=== PATIENT | female | born 1965 | race Hispanic/Latino ===

== ENCOUNTER 2018-09-29 01:32 | Emergency (ER) | payer SELFPAY ==
[2018-09-29 01:41] VITALS: BP 155/85
== END 2018-09-29 04:45 | disposition left against medical advice (07) ==
LOC: ED 01:32
DX: H92.02 Otalgia, left ear (principal); Z53.21 Procedure and treatment not carried out due to patient leaving prior to being seen by health care provider

== ENCOUNTER 2021-02-07 02:30 | Emergency (ER) | payer SELFPAY ==
[2021-02-07] MEDS ORDERED: ONDANSETRON 4 MG/2 ML INJ IV PRN (03:04)
[2021-02-07] MEDS ORDERED: NALOXONE 0.4 MG/1 ML INJ IV PRN (03:04)
--- NOTE | 2021-02-07 03:06 | Emergency Department Report ---
<KEIRA ROCA - Last Filed: 02/07/21 08:40> ED General Adult HPI - General Chief complaint: Overdose Stated complaint: patient sleeping Time Seen by Provider: 02/07/21 02:52 - Related Data Previous Rx's Medication Instructions Recorded Last Taken Type Naloxone HCl [Narcan Nasal [place]] 4 mg NS PRN PRN #1 spray 02/07/21 Unknown Rx Allergies Allergy/AdvReac Type Severity Reaction Status Date / Time Penicillins Allergy Unknown Verified 09/02/13 09:51 Sulfa (Sulfonamide Allergy Unknown Verified 09/02/13 09:51 Antibiotics) ED Past Medical Hx - Medications Home Medications: Home Medications Medication Instructions Recorded Confirmed Last Taken Type Naloxone HCl [Narcan Nasal [place]] 4 mg NS PRN PRN #1 spray 02/07/21 Unknown Rx ED Course - Reevaluation(s) Reevaluation #3: 02/07/21 08:40 Patient now is alert, oriented x3 in no acute distress. Patient stated that she took the drug last night to get high. He denied any thoughts of suicidal ideation. Patient also denied any homicidal ideation. Patient denied any visual or auditory hallucination. Patient is eating breakfast comfortably. Vital signs stable. Patient is medically and psychiatrically stable for discharge. ED Medical Decision Making - Lab Data Result diagrams: 02/07/21 03:24 02/07/21 03:24 ED Disposition Clinical Impression: Opioid overdose Disposition: 01 HOME / SELF CARE / HOMELESS Condition: Good Instructions: Opioid Overdose Additional Instructions: We recommend that the patient not drive or operate motor vehicles until cleared to do so by a primary care doctor. Recommend that patient avoid consumption of narcotics, opioids, alcohol, tobacco, smoke products, recreational and legal drugs. Consumption of opioids may cause addiction, , paralysis, loss of quality of life, and respiratory depression. Use the Narcan medication as needed for symptoms of opioid overdose. Please follow-up with your primary care doctor within the next 3 to 5 days for repeat checkup and evaluation. Please return to the emergency room right away with new, worsened or different symptoms, recurrent overdose, homicidality, suicidality, or any new, worsened or different symptoms not present on the initial emergency room evaluation. Prescriptions: Naloxone HCl [Narcan Nasal [place]] 4 mg NS PRN PRN #1 spray PRN Reason: Opioid Reversal Referrals: [facility] [Provider Group] - 3-5 Days [facility] [Outside] - 3-5 Days [facility] [Outside] - 3-5 Days <VLADISLAV WEBSTER - Last Filed: 02/09/21 11:43> ED General Adult HPI - General Source: patient, EMS ( EMS documentation not available at time of chart dictation ), RN notes reviewed, old records reviewed Mode of arrival: Stretcher Limitations: Altered Mental Status - History of Present Illness Initial comments: The patient was evaluated in the emergency department for symptoms described in the history of present illness. He/she was evaluated in the context of the [facility] COVID-19 pandemic, which necessitated consideration that the patient might be at risk for infection with the virus that causes COVID-19. Institutional protocols and algorithms that pertain to the evaluation of patients at risk for COVID-19 are in a state of rapid change based on information released by regulatory bodies including the CDC and federal and state organizations. These policies and algorithms were followed during the patient's care in the emergency department. Please note that these policies, procedures and recommendations changed on a rapid basis. The patient is a 55-year-old female. She is not known to myself previously. She is reportedly brought to the hospital by emergency medical services with a complaint of narcotic overdose. Patient is sleepy but somewhat arousable. To me she denies physical pain. She denies homicidality and suicidality. Collateral information obtained from nursing staff includes the following: Patient overdosed on heroin and home, did not fall or hit head, was ambulatory in the field, and stable vital signs in the field, but family contacted 911 because of somnolence. Apparently, the family also performed CPR. At the moment, the patient is not accompanied by friends or family for additional information and/or collateral information. At this point time, patient not able to describe the qualitative nature of her symptoms, exacer bating factors, relieving factors or aggravating factors -: This morning ED Review of Systems ROS: Stated complaint: DRUG OD Other details as noted in HPI Comment: Unobtainable due to pts medical conditions ED Past Medical Hx - Social History Smoking Status: Current Every Day Smoker Substance Use Type: Marijuana, Other ED Physical Exam - General Limitations: Altered Mental Status General appearance: in no apparent distress, lethargic - Head Head exam: Present: atraumatic, normocephalic - Eye Eye exam: Present: normal appearance, EOMI, other (Pinpoint pupils are noted bilaterally) - ENT ENT exam: Present: normal exam, normal orophraynx, mucous membranes moist, normal external ear exam, other (Patient is edentulous) - Neck Neck exam: Present: normal inspection, full ROM. Absent: tenderness, meningismus - Respiratory Respiratory exam: Present: decreased breath sounds. Absent: respiratory distress, wheezes, rales, rhonchi, stridor - Cardiovascular Cardiovascular Exam: Present: normal rhythm, bradycardia, normal heart sounds. Absent: tachycardia, irregular rhythm, systolic murmur, diastolic murmur, rubs, gallop - GI/Abdominal GI/Abdominal exam: Present: soft. Absent: distended, tenderness, guarding, rebound, rigid, pulsatile mass - Extremities Exam Extremities exam: Present: normal inspection, other (2+ pulses noted in the bilateral upper and lower extremities. There is no palpable cord. negative Homans sign. Muscular compartments are soft. The pelvis is stable.). Absent: calf tenderness - Back Exam Back exam: Present: normal inspection. Absent: tenderness, CVA tenderness (R), CVA tenderness (L), paraspinal tenderness, vertebral tenderness - Neurological Exam Neurological exam: Present: altered, other (There is no facial droop. The tongue is midline. Moves 4 extremities spontaneously.) - Psychiatric Psychiatric exam: Present: flat affect - Skin Skin exam: Present: warm, dry, intact, normal color. Absent: rash ED Course Vital Signs 02/07/21 02/07/21 02/07/21 03:09 03:16 03:25 Temperature 98.5 F Pulse Rate 56 L 55 L Respiratory 11 L 10 L 10 L Rate Blood Pressure 120/56 121/56 O2 Sat by Pulse 96 98 97 Oximetry 02/07/21 02/07/21 02/07/21 03:31 04:01 04:31 Temperature Pulse Rate 63 82 72 Respiratory 13 15 12 Rate Blood Pressure 120/56 111/44 120/56 O2 Sat by Pulse 97 98 99 Oximetry 02/07/21 02/07/21 02/07/21 05:01 05:31 06:01 Temperature Pulse Rate 57 L 55 L 71 Respiratory 12 12 19 Rate Blood Pressure 120/56 120/56 120/56 O2 Sat by Pulse 97 99 100 Oximetry 0802/07/21 02/07/21 06:31 07:01 07:31 Temperature Pulse Rate 66 74 65 Respiratory 15 13 12 Rate Blood Pressure 120/56 120/56 120/56 O2 Sat by Pulse 97 96 97 Oximetry 02/07/21 02/07/21 08:01 08:31 Temperature Pulse Rate 69 60 Respiratory 12 9 L Rate Blood Pressure 94/73 94/73 O2 Sat by Pulse 99 98 Oximetry - Reevaluation(s) Reevaluation #1: 02/07/21 03:45 Differential diagnosis, including but not limited to: Toxic encephalopathy, opioid overdose Assessment and plan: 55-year-old female with palpable narcotic overdose. Patient placed on . Obtain x-ray of the chest, CT scan of the brain, appropriate laboratory studies, EKG, and monitor patient. Ordered as needed Narcan. For the moment, the patient is sleepy but arousable, and protecting her airway. She will need observation pending clinical sobriety. Reassess after initial data points. She denies homicidality suicidality to the nurse and myself. Patient likely needs to sober up. Additional history to be obtained when patient is sober. Reevaluation #2: 02/07/21 04:15 X-ray the chest negative for acute findings. Noncontrast CT scan of the brain negative for acute findings. 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 02/07/21 05:12 Laboratory studies unremarkable. Patient sleepy but arousable. When I go to interview the patient, she awakes, and then goes back to sleep. Care will be transferred to the oncoming ER physician to reassess, and discharge when sober, arousable, alert, and oriented, and able to have a lucid and rational conversation. ED Medical Decision Making - Lab Data Result diagrams: 02/07/21 03:24 02/07/21 03:24 Vital Signs 02/07/21 02/07/21 02/07/21 03:09 03:16 03:25 Temperature 98.5 F Pulse Rate 56 L 55 L Respiratory 11 L 10 L 10 L Rate Blood Pressure 120/56 121/56 O2 Sat by Pulse 96 98 97 Oximetry - EKG Data -: EKG Interpreted by Ri EKG shows normal: sinus rhythm Rate: normal - EKG Data 02/07/21 03:43 EKG interpreted at 03: 2 0 Sinus rhythm, rate 62 bpm. Normal axis, normal P wave axis. Poor R wave progression V2. QTC 452 ms. Abnormal EKG.. No prior for comparison. - Radiology Data Radiology results: pending, report reviewed, image reviewed interpreted by me: One-view portable x-ray of the chest, interpreted by myself, shows no infiltrate, clear lungs, no pneumothorax, unremarkable cardiac silhouette, unremarkable bony anatomy Critical care attestation.: If time is entered above; I have spent that time in minutes in the direct care of this critically ill patient, excluding procedure time. ED Disposition Is pt being admited?: No Does the pt Need Aspirin: No
--- NOTE | 2021-02-07 03:54 | XRay Report ---
CHEST 1 VIEW 02/07/2021 2:42 AM INDICATION / CLINICAL INFORMATION: ams heroin OD. COMPARISON: None available. FINDINGS: SUPPORT DEVICES: None. HEART / MEDIASTINUM: No significant abnormality. LUNGS / PLEURA: No significant pulmonary or pleural abnormality. No pneumothorax. ADDITIONAL FINDINGS: No significant additional findings. IMPRESSION: 1. No acute findings. Signer Name: Jarred Herrmann MD Signed: 02/07/2021 3:49 AM Workstation Name: [id number]
--- NOTE | 2021-02-07 04:02 | Cat Scan Report ---
CT HEAD WITHOUT CONTRAST INDICATION / CLINICAL INFORMATION: ams heroin od. TECHNIQUE: All CT scans at this location are performed using CT dose reduction for ALARA by means of automated e xposure control. COMPARISON: None available. FINDINGS: HEMORRHAGE: None. EXTRA-AXIAL SPACES: Normal in size and morphology for the patient's age. VENTRICULAR SYSTEM: Normal in size and morphology for the patient's age. CEREBRAL PARENCHYMA: Mild bilateral microangiopathy No significant abnormality. No acute territorial infarct. MIDLINE SHIFT OR HERNIATION: None. CEREBELLUM / BRAINSTEM: No significant abnormality. ORBITS: Normal as visualized. SOFT TISSUES of HEAD: No significant abnormality. CALVARIUM: No significant abnormality. PARANASAL SINUSES / MASTOID AIR CELLS: Normal as visualized. ADDITIONAL FINDINGS: None. IMPRESSION: 1. No acute intracranial abnormality. 2. Mild microangiopathy. Signer Name: Jarred Herrmann MD Signed: 02/07/2021 3:57 AM Workstation Name: [id number]
[2021-02-07 04:17] LABS: Basophils % (Auto) 0.4 % (0.0-1.8); Eosinophils # (Auto) 0.5 K/mm3 (0.0-0.4); Eosinophils % (Auto) 4.3 % (0.0-4.3); Hemoglobin 12.7 gm/dl (10.1-14.3); Lymphocytes % (Auto) 18.1 % (13.4-35.0); Mean Corpuscular HGB Conc 32 % (30-34); Mean Corpuscular Volume 82 fl (79-97); Monocytes # (Auto) 0.7 K/mm3 (0.0-0.8); Monocytes % (Auto) 6.8 % (0.0-7.3); Platelet Count 245 K/mm3 (140-440); Red Blood Count 4.87 M/mm3 (3.65-5.03); Red Cell Distribution Width 16.2 % (13.2-15.2)
[2021-02-07 04:38] LABS: Alanine Aminotransferase 23 units/L (7-56); Albumin 3.8 g/dL (3.9-5); BUN/Creatinine Ratio 16; Blood Urea Nitrogen 13 mg/dL (7-17); Calcium 9.4 mg/dL (8.4-10.2); Hemolysis Index 6
[2021-02-07 06:03] LABS: Bacteria,Urine 1+ /HPF (Negative); Bilirubin,Urine NEG (Negative); Blood,Urine SM (Negative); Color,Urine Yellow (Yellow); Mucus,Urine FEW /HPF; Protein,Urine <15 mg/dL mg/dL (Negative); Urobilinogen,Urine < 2.0 mg/dL (<2.0)
[2021-02-07 06:10] LABS: Cannabinoid Screen,Urine Negative; Cocaine Screen,Urine Negative; Opiate Screen,Urine Negative
[2021-02-07 06:41] LABS: Amphetamine Screen,Urine Positive; Benzodiazepines Screen,Urine Positive; Methadone Screen,Urine Positive
[2021-02-07 10:11] VITALS: BP 94/73
--- NOTE | 2021-02-07 13:23 | Electrocardiograph Report ---
[facility] Test Date: 2021-02-07 Test Time: 03:20:50 Pat Name: PETRONA GALLOWAY Department: Room: Gender: F Medical Radiation Tech: BILL : 1965 Requested By: VLADISLAV WEBSTER Order Number: [id number] Reading MD: Farooq Escudero Measurements Intervals [place] Rate: 62 P: 40 FL: 154 QRS: 12 QRSD: 103 T: 46 QT: 445 QTc: 452 Interpretive Statements Sinus rhythm No previous ECG available for comparison Electronically Signed On 02-07-2021 13:22:36 EDT by Farooq Escudero
== END 2021-02-07 10:11 | disposition home or self-care (01) ==
LOC: ED 02:30
DX: T40.2X1A Poisoning by other opioids, accidental (unintentional), initial encounter (principal); F17.200 Nicotine dependence, unspecified, uncomplicated; F12.90 Cannabis use, unspecified, uncomplicated; Z88.2 Allergy status to sulfonamides; Z88.8 Allergy status to other drugs, medicaments and biological substances; Z79.899 Other long term (current) drug therapy; Y92.89 Other specified places as the place of occurrence of the external cause
CPT/HCPCS: 36415; 70450; 71045; 80053; 80307; 81001; 82550; 85025; 93005; 96374; 99285; J2310; 80320; G0480